=== PATIENT | female | born 1960 | race Caucasian/White ===

== ENCOUNTER → 2017-01-13 | Outpatient (CLI) | payer BC ==
--- NOTE | 2017-01-13 15:10 | XR ---
EXAMINATION TYPE: XR Hip Complete RT DATE OF EXAM: 01/13/2017 3:00 PM CLINICAL HISTORY: Right hip pain for 3 weeks. TECHNIQUE: AP and frogleg views of the right hip are obtained. COMPARISON: None. FINDINGS: There is no acute fracture/dislocation evident in the right hip. There is mild axial joint space loss. There is spurring at head neck junction in the proximal femur. The overlying soft tissue appears unremarkable. IMPRESSION: There is no acute fracture or dislocation in the right hip. Degenerative changes as note d above.
== END ==
LOC: RADXRMAIN 14:31
PROVIDERS: ATTEND Physician Assistant
DX: M16.11 Unilateral primary osteoarthritis, right hip (principal)
CPT/HCPCS: 73502

== ENCOUNTER → 2017-01-29 | Outpatient (CLI) | payer BC ==
--- NOTE | 2017-01-30 12:02 | MM ---
Reason for exam: screening (asymptomatic). Last mammogram was performed 3 years and 11 months ago. History: Patient is postmenopausal. Family history of premenopausal breast cancer in mother. Took estrogen for 6 months. Physical Findings: A clinical breast exam by your physician is recommended on an annual basis and results should be correlated with mammographic findings. MG Screening Mammo w CAD Bilateral CC and MLO view(s) were taken. Prior study comparison: February 16, 2013, CAD bilateral diagnostic mammogram. There are scattered fibroglandular densities. No significant changes when compared with prior studies. ASSESSMENT: Negative, BI-RAD 1 RECOMMENDATION: Routine screening mammogram of both breasts in 1 year.
== END | disposition home or self-care (01) ==
LOC: RADMAMWWP 13:59
PROVIDERS: ATTEND Family Medicine
DX: Z12.31 Encounter for screening mammogram for malignant neoplasm of breast (principal)

== ENCOUNTER → 2018-07-29 | Outpatient (CLI) | payer BC ==
--- NOTE | 2018-07-30 10:52 | ECHOF ---
Referral Reason:R00.2 chest pain, R10.12 Left Upper Quad abdompain MEASUREMENTS -------- HEIGHT: 170.2 cm WEIGHT: 84.8 kg BP: 105/61 RVIDd: 2.7 cm (< 3.3) IVSd: 1.0 cm (0.6 - 1.1) LVIDd: 4.5 cm (3.9 - 5.3) LVPWd: 1.0 cm (0.6 - 1.1) IVSs: 1.3 cm LVIDs: 2.9 cm LVPWs: 1.3 cm LAESV Index (A-L): 20.13 ml/m Ao Diam: 2.8 cm (2.0 - 3.7) AV Cusp: 1.9 cm (1.5 - 2.6) LA Diam: 3.3 cm (2.7 - 3.8) EPSS: 0.5 cm MV E Basil: 0.98 m/s MV DecT: 240 ms MV A Basil: 0.86 m/s MV E/A Ratio: 1.14 RAP: 5.00 mmHg RVSP: 36.46 mmHg MV EF SLOPE: 117.06 mm/s (70 - 150) MV EXCURSION: 1.93 cm (> 18.000) FINDINGS -------- Sinus rhythm. This was a technically good study. The left ventricular size is normal. Left ventricular wall thickness is normal. Overall left vent ricular systolic function is normal with, an EF between 55 - 60 %. The right ventricle is normal in size and function. Normal LA size by volume 22+/-6 ml/m2. The right atrium is normal in size. The aortic valve is trileaflet, and appears structurally normal. No aortic stenosis or regurgitation. Mild mitral annular calcification present. There is trace to mild mitral regurgitation. Trace tricuspid regurgitation present. Right ventricular systolic pressure is normal at < 35 mmHg. There is borderline pulmonary hypertension. Trace/mild (physiologic) pulmonic regurgitation. The aortic root size is normal. Normal inferior vena cava with normal inspiratory collapse consistent with estimated right atrial pre ssure of 5 mmHg. There is no pericardial effusion. CONCLUSIONS -------- 1. Sinus rhythm. 2. This was a technically good study. 3. The left ventricular size is normal. 4. Left ventricular wall thickness is normal. 5. Overall left ventricular systolic function is normal with, an EF between 55 - 60 %. 6. Normal LA size by volume 22+/-6 ml/m2. 7. The aortic valve is trileaflet, and appears structurally normal. No aortic stenosis or regurgitati on. 8. Mild mitral annular calcification present. 9. There is trace to mild mitral regurgitation. 10. Trace tricuspid regurgitation present. 11. Right ventricular systolic pressure is normal at < 35 mmHg. 12. There is borderline pulmonary hypertension. 13. Trace/mild (physiologic) pulmonic regurgitation. 14. The aortic root size is normal. 15. There is no pericardial effusion. FEATHEREDGER AND REDUCER MACHINE: Hever Finley RDCS
--- NOTE | 2018-07-30 18:06 | ECHOS ---
STRESS ECHOCARDIOGRAM DATE OF SERVICE: 07/29/2018 INDICATIONS: Chest pain MEDICATIONS: See list. BASELINE HEART RATE: 68 BASELINE BLOOD PRESSURE: 105/61 MAXIMUM HEART RATE: 145 MAXIMUM BLOOD PRESSURE: 175/86 85% MPHR: 137 100% MPHR: 164 METS: 11.7 MAXIMUM STAGE REACHED: 3 TOTAL EXERCISE TIME: 10 minutes CLINICAL INFORMATION: History of chest pain. RESULTS: Baseline heart rate 68 beats per minute. Baseline blood pressure 105/61 mmHg. Baseline 12-lead ECG shows normal sinus, normal cardiac intervals. Patient exercised on Héctor protocol for 10 minutes achieving a peak heart rate of 145 beats per minute. Normal blood pressure response to exercise. There was no ECG evidence for ischemia. However, at recovery, she started experiencing outflow tract PVCs with left bundle branch block morphology. Frequent PVCs were noted, subsided within 2 to 3 minutes into recovery. No sustained or nonsustained ventricular arrhythmias. The baseline 2D echo images showed normal LV size and systolic function without segmental wall motion abnormalities. At peak exercise, there was excellent augmentation of overall LV contractility without developing any wall motion abnormalities. At recovery, regional global LV systolic function remained normal. IMPRESSION: 1. Good exercise capacity. 2. No ECG evidence for ischemia. 3. No arrhythmias noted. 4. RVOT PVCs noted at recovery. MMODL / IJN: [id number] /
== END | disposition home or self-care (01) ==
LOC: RADNMMAIN 09:40
PROVIDERS: ATTEND Family Medicine
DX: I34.0 Nonrheumatic mitral (valve) insufficiency (principal); I37.1 Nonrheumatic pulmonary valve insufficiency; I27.20 Pulmonary hypertension, unspecified
CPT/HCPCS: 93306; 93351

== ENCOUNTER → 2018-07-30 | Outpatient (CLI) | payer BC ==
--- NOTE | 2018-07-30 09:18 | FL ---
EXAMINATION TYPE: FL UGI air w esophagus DATE OF EXAM: 07/30/2018 COMPARISON: NONE HISTORY: Left upper quadrant pain for 2 weeks TECHNIQUE: A double contrast UGI study is performed. 45 fluoroscopic images were taken, however imag es were unable to be saved. Images were reviewed at the technologist workstation. 2 minutes and 33 se conds of fluoroscopy time was utilized. FINDINGS: The esophagus shows normal motility and emptying into the stomach. A very small hiatal hernia is seen . No stricture is identified. The stomach shows normal distensibility and peristalsis with minimally thickened rugal folds in the g astric fundus and upper body. No evidence of any mass or ulcer disease. Moderate gastroesophageal re flux was seen during real time performance of this study to the level of the midthoracic esophagus wi thout Valsalva maneuver. The duodenal bulb, sweep, and proximal small bowel loops are unremarkable. IMPRESSION: 1. Moderate grade spontaneous gastroesophageal reflux to the level of mid thoracic esophagus without Valsalva maneuver. 2. Very small hiatal hernia. 3. Minimally thickened upper gastric rugal folds in the fundus and upper body most commonly related t o mild gastritis.
== END ==
LOC: RADFLMAIN 07:41
PROVIDERS: ATTEND Family Medicine
DX: K21.9 Gastro-esophageal reflux disease without esophagitis (principal); K44.9 Diaphragmatic hernia without obstruction or gangrene; K31.89 Other diseases of stomach and duodenum
CPT/HCPCS: 74246

== ENCOUNTER → 2018-09-21 | Outpatient (CLI) | payer BC ==
--- NOTE | 2018-09-21 16:57 | BD ---
EXAMINATION TYPE: Axial Bone Density DATE OF EXAM: 09/21/2018 COMPARISON: NONE CLINICAL HISTORY: Height: 5'5 1/2 Weight: 189 FRAX RISK QUESTIONS: History of Fracture in Adulthood: Y Secondary Osteoporosis: 3. Menopause before 45: Y RISK FACTORS HISTORY OF: Postmenopausal woman: y MEDICATIONS: Additional Medications: acid reflux, arthritis Additional History: EXAM MEASUREMENTS: Bone mineral densitometry was performed using the [employer] System. Bone mineral density as measured about the Lumbar spine is: ----- L1-L4(G/cm2): 1.131 T Score Values are as follows: ----- L2: -1.4 ----- L3: -0.2 ----- L4: 0.3 ----- L1-L4:-0.4 Bone mineral density about the R hip (g/cm2): 0.950 Bone mineral density about the L hip (g/cm2): 0.883 T Score values are as follows: -----R Neck: -0.6 -----L Neck: -1.1 -----R Total: -1.0 -----L Total: -0.4 IMPRESSION: Osteopenia (T Score between -2.5 and -1). There is slightly increased risk of fracture and the patient may be considered for treatment. Re-Screen 2-5 years. NOTE: T-SCORE=SD OF THE YOUNG ADULT MEAN.
--- NOTE | 2018-09-22 13:31 | MM ---
Reason for exam: screening (asymptomatic). Last mammogram was performed 1 year and 8 months ago. History: Patient is postmenopausal. Family history of premenopausal breast cancer in mother. Took estrogen for 6 months. Physical Findings: A clinical breast exam by your physician is recommended on an annual basis and results should be correlated with mammographic findings. MG 3D Screening Mammo W/Cad Bilateral CC and MLO view(s) were taken. Prior study comparison: January 29, 2017, bilateral MG screening mammo w CAD. February 16, 2013, CAD bilateral diagnostic mammogram. There are scattered fibroglandular densities. There is no discrete abnormality. ASSESSMENT: Negative, BI-RAD 1 RECOMMENDATION: Routine screening mammogram of both breasts in 1 year.
== END | disposition home or self-care (01) ==
LOC: RADMAMWWP 06:57
PROVIDERS: ATTEND Family Medicine
DX: Z12.31 Encounter for screening mammogram for malignant neoplasm of breast (principal); M85.88 Other specified disorders of bone density and structure, other site; Z78.0 Asymptomatic menopausal state
CPT/HCPCS: 77063; 77067; 77080

== ENCOUNTER → 2019-09-22 | Outpatient (CLI) | payer BC ==
--- NOTE | 2019-09-23 10:46 | MM ---
Reason for exam: screening (asymptomatic). Last mammogram was performed 1 year ago. History: Patient is postmenopausal. Family history of breast cancer in maternal aunt and premenopausal breast cancer in mother. Took estrogen for 6 months. Physical Findings: A clinical breast exam by your physician is recommended on an annual basis and results should be correlated with mammographic findings. MG 3D Screening Mammo W/Cad Bilateral CC and MLO view(s) were taken. Prior study comparison: September 21, 2018, bilateral MG 3d screening mammo w/cad. January 29, 2017, bilateral MG screening mammo w CAD. The breast tissue is heterogeneously dense. This may lower the sensitivity of mammography. No significant changes when compared with prior studies. ASSESSMENT: Negative, BI-RAD 1 RECOMMENDATION: Routine screening mammogram of both breasts in 1 year.
== END | disposition home or self-care (01) ==
LOC: RADMAMWWP 07:31
PROVIDERS: ATTEND Family Medicine
DX: Z12.31 Encounter for screening mammogram for malignant neoplasm of breast (principal)
CPT/HCPCS: 77063; 77067

== ENCOUNTER 2021-04-02 10:11 | Emergency (ER) | payer BC ==
[2021-04-02 10:33] VITALS: BP 117/74; PULSE 74; RESP 18; TEMP 98.6
--- NOTE | 2021-04-02 11:41 | XR ---
EXAMINATION TYPE: XR Hip Complete RT DATE OF EXAM: 04/02/2021 Comparison: 01/13/2017 Clinical History: 61-year-old female fall x 2 days/pain Findings: There is severe loss of cartilage and joint space especially along the superolateral weightbearing as pect of the right hip joint with subchondral sclerosis and marginal spurring. Findings have progresse d from 2017. Osteopenia. Some mild degenerative change at the right SI joint. No displaced fracture s een. Impression: Severe right hip OA, progressed from 2017. Osteopenia without displaced fracture.
--- NOTE | 2021-04-02 12:04 | ED ---
Lower Extremity Injury HPI - General Chief Complaint: Extremity Injury, Lower Stated Complaint: Fall/Hip Pain Time Seen by Provider: 04/02/21 10:35 Source: patient Mode of arrival: wheelchair Limitations: physical limitation - History of Present Illness Initial Comments: Patient is a 61-year-old female presenting to the emergency Department with complaints of right hip pain after she slipped a couple days ago. Patient states she slipped on some water and her left leg went out to the side and she ended up falling mostly on her right hip. She denies any previous injuries of her right hip or right knee. She is complaining of pain more in the anterior aspect of her hip as well as in her groin area. She has been walking with a cane secondary to the pain. She does not normally walk with a cane. She denies hitting her head or any other injuries from this fall. No further complaints. - Related Data Home Medications Medication Instructions Recorded Confirmed Celecoxib [CeleBREX] 200 mg PO DAILY 04/02/21 04/02/21 Cyclobenzaprine [Flexeril] 10 mg PO TID PRN 04/02/21 04/02/21 Pantoprazole Sodium [Protonix] 40 mg PO DAILY 04/02/21 04/02/21 Previous Rx's Medication Instructions Recorded Ibuprofen [Motrin] 600 mg PO Q8HR PRN #30 tab 04/02/21 Allergies Allergy/AdvReac Type Severity Reaction Status Date / Time codeine Allergy Itching Verified 04/02/21 11:24 Review of Systems ROS Statement: Those systems with pertinent positive or pertinent negative responses have been documented in the HPI. ROS Other: All systems not noted in ROS Statement are negative. Past Medical History Past Medical History: GERD/Reflux Additional Past Medical History / Comment(s): arthritis History of Any Multi-Drug Resistant Organisms: None Reported Past Surgical History: Appendectomy, Hysterectomy Past Psychological History: No Psychological Hx Reported Smoking Status: Never smoker Past Alcohol Use History: Occasional Past Drug Use History: Marijuana General Exam - General Exam Comments Initial Comments: GENERAL: Patient is well-developed and well-nourished. Patient is nontoxic and in no acute distress. HEAD: Atraumatic, normocephalic. EYES: Pupils equal round and reactive to light, extraocular movements intact, sclera anicteric, conjunctiva are normal. Eyelids were unremarkable. ENT: Nares patent, oropharynx clear without exudates. Moist mucous membranes. NECK: Normal range of motion, supple without lymphadenopathy or JVD. LUNGS: Unlabored respirations. Breath sounds clear to auscultation bilaterally and equal. No wheezes rales or rhonchi. HEART: Regular rate and rhythm without murmurs, rubs or gallops. ABDOMEN: Soft, nontender, normoactive bowel sounds. No guarding, no rebound. No masses appreciated. : Deferred MUSCULOSKELETAL: Patient has some mild pain to palpation of the right anterior hip, increased pain with hip flexion and extension, painful gait. Neurovascular intact. No pitting edema. No clubbing or cyanosis. NEUROLOGICAL: Patient is alert and oriented x 3. Motor and sensory are also intact. Cranial nerves II through XII grossly intact. Symmetrical smile. Normal speech, normal gait. PSYCH: Normal mood, normal affect. SKIN: Warm, Dry, normal turgor, no rashes or lesions noted. Limitations: physical limitation Course Vital Signs 04/02/21 10:31 Temperature 98.6 F Pulse Rate 74 Respiratory 18 Rate Blood Pressure 117/74 O2 Sat by Pulse 95 Oximetry Medical Decision Making - Medical Decision Making Patient is a 61-year-old female here for right hip pain after she slipped and fell couple days ago. No other injuries except for the right hip pain. X-rays reveal severe osteoarthritis of the right hip but no acute fractures. I discussed these findings with the patient. I recommended following up with orthopedic doctor if symptoms persist. Also recommended Tylenol or ibuprofen f or discomfort. She can continue walking with a cane for support. Patient is in agreement with this plan of care and she is stable for discharge. Disposition Clinical Impression: Right hip pain Disposition: HOME SELF-CARE Condition: Stable Instructions (If sedation given, give patient instructions): Hip Pain (ED) Additional Instructions: Please return to the Emergency Department if symptoms worsen or any other concerns. Recommend use of cane to help with gait. Recommend Tylenol or ibuprofen for discomfort. Follow up with orthopedics if symptoms persist. Prescriptions: Ibuprofen [Motrin] 600 mg PO Q8HR PRN #30 tab PRN Reason: Pain Is patient prescribed a controlled substance at d/c from ED?: No Referrals: Markel Reyes MD [Primary Care Provider] - 1-2 days Pipe Bro DO [Doctor of Osteopathic Medicine] - 1-2 days Time of Disposition: 12:04
== END 2021-04-02 12:11 | disposition home or self-care (01) ==
LOC: EC 10:11
DX: M25.551 Pain in right hip (principal); K21.9 Gastro-esophageal reflux disease without esophagitis; F12.90 Cannabis use, unspecified, uncomplicated
CPT/HCPCS: 73502; 99283

== ENCOUNTER → 2021-07-03 | Outpatient (CLI) | payer BC ==
--- NOTE | 2021-07-03 12:05 | MM ---
Reason for exam: screening (asymptomatic). Last mammogram was performed 1 year and 9 months ago. History: Patient is postmenopausal. Family history of breast cancer in maternal aunt and premenopausal breast cancer in mother. Took estrogen for 6 months. Physical Findings: A clinical breast exam by your physician is recommended on an annual basis and results should be correlated with mammographic findings. MG 3D Screening Mammo W/Cad Bilateral CC and MLO view(s) were taken. Prior study comparison: September 22, 2019, bilateral MG 3d screening mammo w/cad. September 21, 2018, bilateral MG 3d screening mammo w/cad. January 29, 2017, bilateral MG screening mammo w CAD. There are scattered fibroglandular densities. There are benign appearing round calcifications bilaterally. There is no discrete abnormality. ASSESSMENT: Benign, BI-RAD 2 RECOMMENDATION: Routine screening mammogram of both breasts in 1 year.
--- NOTE | 2021-07-03 15:31 | BD ---
EXAMINATION TYPE: Axial Bone Density DATE OF EXAM: 07/03/2021 COMPARISON: NONE CLINICAL HISTORY: Height: 5 FT 5 1/2 IN Weight: 176 FRAX RISK QUESTIONS: Alcohol (3 or more units per day): NO Family History (Parent hip fracture): NO Glucocorticoids (More than 3mos): NO (Ex: prednisone, prednisolone, methylprednisolone, dexamethasone, and hydrocortisone). History of Fracture in Adulthood: YES Secondary Osteoporosis: 1. Type 1 Diabetes: NO 2. Hyperthyroidism: NO 3. Menopause before 45: YES 4. Malnutrition: NO 5. Chronic liver disease: NO Rheumatoid Arthritis: NO Current Tobacco Use: NO RISK FACTORS HISTORY OF: Surgery to Spine/Hip(right/left)/Wrist (right/left): NO Family History of Osteoporosis: NO Active: YES Diet low in dairy products/other sources of calcium: NO Postmenopausal woman: TOTAL HYST AGE 42 Take estrogen and/or progesterone medications: NONE Lost more than 2 inches in height since high school: NO MEDICATIONS: Additional Medications: TYLENOL, ACID REFLUX, FLEXERAL Additional History: EXAM MEASUREMENTS: Bone mineral densitometry was performed using the [employer] System. Bone mineral density as measured about the Lumbar spine is: ----- L1-L4(G/cm2): 1.256 T Score Values are as follows: ----- L2: -0.3 ----- L3: 0.2 ----- L4: 2.0 ----- L1-L4: 0.6 Bone mineral density has: INCREASED 11.5 % since study of: 2018 Bone mineral density about the R hip (g/cm2): 0.939 Bone mineral density about the L hip (g/cm2): 0.924 T Score values are as follows: -----R Neck: -0.7 -----L Neck: -0.8 -----R Total: -1.1 -----L Total: -0.6 Bone mineral density has: DECREASED -2.0 % since study of: 2018 IMPRESSION: Osteopenia (T Score between -2.5 and -1). There is slightly increased risk of fracture and the patient may be considered for treatment. Re-Screen 2-5 years. NOTE: T-SCORE=SD OF THE YOUNG ADULT MEAN.
== END | disposition home or self-care (01) ==
LOC: RADMAMWWP 07:05
PROVIDERS: ATTEND Family Medicine
DX: Z12.31 Encounter for screening mammogram for malignant neoplasm of breast (principal); Z13.820 Encounter for screening for osteoporosis; M85.89 Other specified disorders of bone density and structure, multiple sites; Z78.0 Asymptomatic menopausal state; Z80.3 Family history of malignant neoplasm of breast
CPT/HCPCS: 77063; 77067; 77080

== ENCOUNTER → 2022-01-02 | Outpatient (CLI) | payer BC ==
--- NOTE | 2022-01-02 17:19 | XR ---
EXAMINATION TYPE: XR lumbar spine 2 or 3V DATE OF EXAM: 01/02/2022 COMPARISON: None available INDICATION: Intermittent left-sided sciatic pain for one year. TECHNIQUE: Standard 3 views of the lumbar spine. FINDINGS: Mild scoliosis of the lumbar spine. Preserved lumbar lordosis. No significant anterolisthesis or retr olisthesis. No definite vertebral body collapse or acute displaced fracture. Degenerative changes of the lumbar spine with multilevel opposing endplate osteophytosis. Degenerated L4-5 and L5-S1 discs and to a lesser extent L3-4 and L1-2 discs. Suspected bilateral L4-5 and L5-S1 facet osteoarthropathy. Arterial atherosclerotic calcifications. 7 mm soft tissue calcification versus calculus is seen in th e mid abdomen in the lateral view. Degenerative changes of the inferior aspect of the left sacroiliac joint. IMPRESSION: Degenerative changes of the lumbar spine as described above. Further MRI assessment can be considered if clinically required.
== END | disposition home or self-care (01) ==
LOC: RADXRMAIN 16:42
PROVIDERS: ATTEND Family Medicine
DX: M47.816 Spondylosis without myelopathy or radiculopathy, lumbar region (principal)
CPT/HCPCS: 72100

== ENCOUNTER → 2022-01-30 | Outpatient (CLI) | payer BC ==
--- NOTE | 2022-01-30 07:46 | US ---
EXAMINATION TYPE: US duplex aorta DATE OF EXAM: 01/30/2022 COMPARISON: NONE CLINICAL HISTORY: M51.36. EXAM MEASUREMENTS: Abdominal Aorta: Proximal: 2.0 x 2.0cm, mostly obscured by overlying midline bowel gas Mid: 1.9 x 2.0cm Distal: 1.6 x 1.7cm Right Iliac: 1.0 x 1.0cm Left Iliac: 0.9 x 0.9cm IMPRESSION: No evidence for abdominal aortic aneurysm at this time.
--- NOTE | 2022-01-30 10:07 | MR ---
EXAMINATION TYPE: MR lumbar spine wo/w con DATE OF EXAM: 01/30/2022 8:10 AM COMPARISON: NONE HISTORY: Back pain, lumbar degeneration CONTRAST: The patient was injected with 8 mL intravenous Gadavist gadolinium contrast. Multiplanar, MultiSpin echo imaging of the lumbar spine was performed. L1-L2: Moderate disc desiccation noted with mild subligamentous disc herniation seen. Mild effacement ventral thecal sac. No evidence for central stenosis or lateral recess stenosis. Mild bilateral fora jermaine encroachment. L2-L3: Mild to moderate disc desiccation. Broad-based posterior disc bulge with mild effacement ventr al thecal sac. No evidence of herniation protrusion or central stenosis. Facet joint arthropathy with out evidence for foraminal encroachment. L3-L4: Moderate disc desiccation. Moderate broad-based posterior disc bulge with the far lateral into the right disc herniation. There is resultant bilateral lateral recess stenosis and right greater th an left foraminal encroachment borderline central stenosis. L4-L5: Severe disc desiccation . Posterior disc bulge. No herniation or protrusion. No evidence for c entral stenosis. No foraminal encroachment L5-S1: Severe disc desiccation posterior disc bulge. No herniation protrusion or central stenosis. Fa cet joint arthropathy with mild bilateral foraminal encroachment. Lumbar segments are intact. No paraspinal masses are identified. Conus medullaris has a normal appe arance. No pathologic enhancement identified. IMPRESSION: 1. Multilevel degenerative disc disease 2. Moderate broad-based posterior disc bulge with far lateral and to the right disc herniation at L3- 4 with bilateral lateral recess stenosis and borderline central stenosis. Bilateral foraminal encroac hment.
== END | disposition home or self-care (01) ==
LOC: RADUSWWP 06:41
PROVIDERS: ATTEND Family Medicine
DX: M48.061 Spinal stenosis, lumbar region without neurogenic claudication (principal); M51.36 Other intervertebral disc degeneration, lumbar region
CPT/HCPCS: 93979; 72158; A9585

== ENCOUNTER → 2022-04-18 | Outpatient (CLI) | payer BC ==
[2022-04-18 08:16] VITALS: BP 147/88; PULSE 71; RESP 16; TEMP 98.2
--- NOTE | 2022-04-18 08:20 | P.PAINPG ---
PQRS Measure Charge Sheet Comment: HISTORY OF PRESENT ILLNESS: 62 yr old female as a referral from Dr. Xiao presents today with severe and chronic LBP x 1 yr secondary to DDD, DH, neuroforaminal stenoses and facet arthropathy for evaluation. Pt states her pain level is 5/10 in intensity, sharp in character, intermittent as it escalates as high as 9/10 and unable to walk due to pain. Pain radiates across the hips and down the LEs. Pain is provoked with activity. Pain is relieved with PT since 2019 but was ineffective, heat, ice, medications (Mobic, Flexeril), topicals which provide no relief, laying supine and rest. PMH: OA, GERD PSH: Hysterectomy, Appendectomy SH: Former tobacco user, No ETOH abuse, No illicit drug use. FH: Non contributory All: Codeine Meds: See list REVIEW OF ORGAN SYSTEMS: CONSTITUTIONAL: No fevers or chills. No recent weight loss. NEUROLOGICAL: + numbness and tingling along the distal extremities. No seizure disorders or headaches. MUSCULOSKELETAL: + pain PSYCHIATRIC: Denies current depression or suicidal thought s. Physical Examinations : Constitutional : Cooperative , not in acute distress . Neurologic : Cranial nerve II to XII intact. No focal neurological deficits. Psychiatric : alert & oriented x 3. Matching mood & appropriate affect. Judgment & insight intact. Musculoskeletal : Cervical Spine Motor strength in the deltoid and biceps: Normal right side. Normal Left side Motor strength biceps and the wrist extensors: Normal right side . Normal left side Motor strength in the triceps muscle: Normal right side. Normal left side Deep tendon reflexes: Normal at the biceps. Normal at Brachioradialis. Normal at triceps Vertebral body tenderness to deep palpation over Cervical facet loading test: positive bilaterally Spurling test: positive bilaterally Neck distraction test: positive bilaterally Tavares sign: positive bilaterally Lumbar spine Motor strength lower extremities ,thigh and legs 5/5 Right side , 5/5 Left side Deep tendon reflexes : Normal Knee Jerk. Normal Ankle Jerk Vertebral body tenderness over L3, L4 Lumbar facet Loading Test: positive Right / positive Left Range of motion of the lumbar spine Flexion 30 degrees, extension 10 degrees Straight Leg Raise test: Left/ Right positive at degree Ho test: positive right / positive left. Severe tenderness over the Sacroiliac joint on the Right / Left sides Gaenslen test: positive bilaterally Seated flexion test: positive bilaterally. Sacral spine : Severe tenderness over the Sacroiliac joint: right side / left side Range of motion: Flexion of the lumbar spine <60 degrees Range of motion: Extension of the lumbar spine <20 degrees Gaenslen's Test positive Gus's Test positive Ho test: positive right side / left side Thigh Thrust Test Sacral Thrust Test Imaging: MRI without contrast of the lumbar spine from 01/30/22 reviewed. Assessment/ Plan : Lumbar DH, Lumbar DDD Recommendation of LESI L3-L4. May need a series of injections, up to 3 within a 6 mo period, for optimal pain relief. Risks, benefits of procedure discussed and patient verbalized understanding. Denies aspirin or anti- coagulant use or medical history of diabetes. Protocol for discontinuation/ continuation of medications lindsay procedure discussed. All questions answered. I have spent greater than 30 minutes on patient care today. Dr Arndt was available by phone for the evaluation of this patient. The time was used to review the medical records including relevant urine studies and Prescription history (MAPs), review of the available imaging, evaluation and examination of the patient, coordination of care with the medical staff and if applicable referring physicians, as well as creation of the medical record PQRS Narrative: Smoking Status Former smoker Home Medications: Ambulatory Orders Celecoxib [CeleBREX] 200 mg PO DAILY 04/02/21 Cyclobenzaprine [Flexeril] 10 mg PO TID PRN 04/02/21 Ibuprofen [Motrin] 600 mg PO Q8HR PRN #30 tab 04/02/21 Pantoprazole Sodium [Protonix] 40 mg PO DAILY 04/02/21 Controlled Substance Measures - Controlled Substance Measures Is patient prescribed a controlled substance at discharge?: No
== END ==
LOC: PNWHC3 07:42
PROVIDERS: ATTEND Specialist
DX: M51.36 Other intervertebral disc degeneration, lumbar region (principal); M48.061 Spinal stenosis, lumbar region without neurogenic claudication; M51.26 Other intervertebral disc displacement, lumbar region; Z87.891 Personal history of nicotine dependence; M19.90 Unspecified osteoarthritis, unspecified site; Z88.5 Allergy status to narcotic agent
CPT/HCPCS: 99211

== ENCOUNTER → 2022-06-13 | Outpatient (CLI) | payer BC ==
[2022-06-13 07:52] VITALS: BP 157/88; PULSE 70; RESP 18; TEMP 98.4
--- NOTE | 2022-06-13 14:08 | P.PAINPG ---
PQRS Measure Charge Sheet Comment: A 62 yr old female with a history of severe and chronic low back pain secondary to lumbar degenerative disc diseases and lumbar spondylosis with facet arthropathy without myelopathy presents today for evaluation s/p MYLES L3-L4. Pt states she experienced 50% pain relief x 2 wks s/p procedure. Pain level is c urrently at 3/10 in intensity, constant, localized in mid lumbar spine, dull/ achy in character w shooting towards the thighs. Pain is provoked by bending & lifting as high as 6/10 in intensity. Pain is alleviated with heat, medications (Mobic), home exercises, yoga, repositioning and rest. Interventional pain procedures completed include MYLES L3-4 x1 Patient is currently on Mobic Patient denies any side effects of the medication(s), denies excessive drowsiness or sleepiness, denies suicidal ideation and reports that the current pain medication is helping to control the pain and improve activities of daily living. Patient denies any motor or sensory deficits. Patient denies any fever or night sweats, denies any change in the bowel movements or urination. Physical Examination: -Constitutional: Cooperative. Not in acute distress . - Neurologic: Cranial nerve II to XII intact. No focal neurological deficits. - Psychatric: Alert & oriented x 3. Matching mood & appropriate affect. Judgme nt and insight intact. - Musculoskeletal: Cervical spine: Muscle bulk/ tone/ strength in the bilateral upper extremities normal Vertebral body tenderness to palpation over Spurling test positive Distraction test positive Facet loading test positive Thoracic spine Muscle bulk / tone/ strength in the bilateral paraspinal muscles normal Vertebral body tender to palpation over Facet loading test positive Lumbar spine: Motor bulk/ tone/ strength lower extremities , thigh and legs : 5/5 Deep tendon reflexes : Normal Knee Jerk. Normal Ankle Jerk . Vertebral body tenderness to palpation over L4 Lumbar Facet Loading Test positive Straight Leg Raise: positive at 30 degrees right side/ left side Gaenslen's Test positive Sacral spine : Severe tenderness over the Sacroiliac joint: right side / left side Range of motion: Flexion of the lumbar spine <60 degrees Range of motion: Extension of the lumbar spine <20 degrees Gaenslen's Test positive Gus's Test positive Ho test: positive right side / left side Thigh Thrust Test Sacral Thrust Test Assessment and plan: Chronic low back pain secondary to lumbar degenerative disc disease , lumbar spondylosis with facet arthropathy without myelopathy Recommendation of MYLES L3-4 #2. May need a series of injections, up to 3 within a 6 mo period, for optimal pain relief. Risks, benefits of procedure discussed and pt verbalized understanding. Denies anticoagulant use or medical history of diabetes. . All patient questions answered MAPS reviewed and it was appropriate. I have spent less than 30 minutes on patient care today. Dr Arndt was available by phone for the evaluation of this patient. The time was used to review the medical records including relevant urine studies and Prescription history (MAPs), review of the available imaging, evaluation and examination of the patient, coordination of care with the medical staff and if applicable referring physicians, as well as creation of the medical record - Pain Location Lower Back Non-Pharmacological Interventions: Heat, Home Exercise, Relaxation Technique, Stretching Pharmacological Interventions: Epidural PQRS Narrative: Smoking Status Former smoker Hx Alcohol Use (MH) Yes: occasional Home Medications: Ambulatory Orders Cyclobenzaprine [Flexeril] 10 mg PO TID PRN 04/02/21 Ibuprofen [Motrin] 600 mg PO Q8HR PRN #30 tab 04/02/21 Pantoprazole Sodium [Protonix] 40 mg PO DAILY 04/02/21 Meloxicam [Mobic] 1 tab PO DAILY 04/18/22 Controlled Substance Measures - Controlled Substance Measures Is patient prescribed a controlled substance at discharge?: No
== END ==
LOC: PNWHC3 07:23
PROVIDERS: ATTEND Specialist
DX: M51.36 Other intervertebral disc degeneration, lumbar region (principal); M47.816 Spondylosis without myelopathy or radiculopathy, lumbar region; G89.29 Other chronic pain; Z87.891 Personal history of nicotine dependence; Z88.5 Allergy status to narcotic agent
CPT/HCPCS: 99211

== ENCOUNTER 2022-07-18 06:47 | Day surgery (SDC) | payer BC ==
[2022-07-16 16:18] VITALS: BMI 28.2
[~2022-07-18 06:47] MED LIST: LACTATED RINGERS 1,000 ML IV SCH; LIDOCAINE 1% (10MG/ML) FOR IV START INTRADERMA PRN
[2022-07-18 07:13] VITALS: TEMP 97.6
[2022-07-18] MEDS ORDERED: MIDAZOLAM 2 MG/2 ML VIAL ONE (07:47)
[2022-07-18] MEDS ORDERED: IOPAMIDOL M200 10 ML VIAL ONE (07:47)
[2022-07-18] MEDS ORDERED: methylPREDNISolone ACETATE 80 MG/ML 1 ML VIAL ONE (07:47)
[2022-07-18] MEDS ORDERED: fentaNYL (PF) 50 MCG/ML 2 ML AMP ONE (07:47)
--- NOTE | 2022-07-18 08:00 | P.PCN ---
Date of Procedure: 07/18/22 Procedure(s) Performed: PREOPERATIVE DIAGNOSIS: 1- Lumbar Degenerative Disc Diseases 2-Lumbar spondylosis with Facet arthropathy without myelopathy POSTOPERATIVE DIAGNOSIS: Same as preop diagnosis. PROCEDURE 1. Lumbar epidural steroid injection under fluoroscopic guidance at the L3-4 level. (Fluoroscopy imaging was available in radiology department) 2. Lumbar epidurogram. ANESTHESIA: moderate sedation with intravenous Versed 2 mg ,and fentanyle 100 Mcg Sedation start time : 07:49 Sedation end time : 07:59 EBL: Minimal PROCEDURE INDICATION: The patient with low back pain and radiculitis symptoms unresponsive to conservative treatment. Fluoroscopy was used to optimize visualization of the needle placement and to maximize safety. PROCEDURE DESCRIPTION / TECHNIQUE: The patient was seen and identified in the preoperative area. Risks, benefits, complications including but not limited to infections ,bleeding ,allergic reaction to the medications ,nerve damage and not complete pain releife , and alternatives were discussed with the patient. The patient agreed to proceed with the procedure and signed the consent. IV was started, and vital signs were stable. Patient was taken to the OR and time out was completed. The patient was placed in the prone position on procedure table and a pillow was placed under the abdomen to reduce lumbar lordosis. The lumbosacral area was prepped and draped in the usual sterile fashion.ere closely monitored during the procedure. Conscious sedation was used during the procedure to decrease patients anxiety. Vital signs was monitered during the entire procedure. Using anterior-posterior fluoroscopy, the L3-4 interlaminar space was identified and the skin over this site was marked and then infiltrated with 1% lidocaine subcutaneously. Subsequently, a 20-gauge Tuohy epidural needle was inserted and advanced toward the epidural space using the ``Loss of resistance technique and guided by AP and lateral fluoroscopy. The correct needle position in the epidura l space was verified with the injection of 2 mL of the water soluble contrast dye Isovue 200 contrast and observing an excellent epidurogram with the epidural spread of the dye, after negative aspiration for blood and CSF and in the absence of paresthesias. Again after negative aspiration, a 6 ml mixture containing 80 mg of Depo-medrol , and 2 ml of preservative free Normal Saline, and 2 ml of preservative free lidocaine 1% solution was injected and a washout of epidurogram was seen. Needle was withdrawn intact, skin was cleansed, and bandages were applied. COMPLICATIONS: None DISPOSITION / PLANS: The patient was placed in a supine position and transferred to the recovery area in a stable condition for observation. There was no evidence of lower extremity motor or sensory deficit after the procedure. Patient was discharged from the recovery room after meeting discharge criteria. Home discharge instructions were given to the patient by the staff. The patient was reexamined prior to discharge. The patient will schedule a follow up in the clinic in 2-4 weeks
[2022-07-18] MEDS ORDERED: IV FLUID CONTINUATION 800 ML IV ONE (08:04)
[2022-07-18 08:20] VITALS: BP 117/77; PULSE 62; RESP 20
--- NOTE | 2022-07-18 08:35 | FL ---
EXAMINATION TYPE: FL guided pain mgmt statistic DATE OF EXAM: 07/18/2022 CLINICAL HISTORY: Low back pain. TECHNIQUE: Fluoroscopy. COMPARISON: None. FINDINGS: Fluoroscopic guidance was provided during pain relief procedure performed by Dr. Arndt . A total of 1 second of fluoroscopic time was utilized during the procedure and 1 spot images are a cquired. Single image acquired shows needle localization at L4 level. IMPRESSION: As Above.
== END 2022-07-18 08:33 | disposition home or self-care (01) ==
LOC: ORPAIN 06:47
PROVIDERS: ATTEND Specialist
DX: M51.16 Intervertebral disc disorders with radiculopathy, lumbar region (principal); M47.26 Other spondylosis with radiculopathy, lumbar region; Z88.5 Allergy status to narcotic agent
CPT/HCPCS: 99152; 62323; J2250; J1040; J3010; Q9966

== ENCOUNTER → 2022-08-01 | Outpatient (CLI) | payer BC ==
--- NOTE | 2022-08-02 08:06 | MM ---
Reason for Exam: Screening (asymptomatic). Last mammogram was performed 1 year(s) and 1 month(s) ago. Patient History: Menarche at age 17. First Full-Term at age 25. Left ovary removed at age 42. Right ovary removed at age 42. Hysterectomy at age 42. Postmenopausal. Estrogen for 6 months until age 43. Maternal aunt had breast cancer. Mother had breast cancer. Risk Values: Lynn 5 year model risk: 2.5%. NCI Lifetime model risk: 12.4%. Prior Study Comparison: 09/21/2018 Bilateral Screening Mammogram, [facility]. 09/22/2019 Bilateral Screening Mammogram, [facility]. 07/03/2021 Bilateral Screening Mammogram, [facility]. Tissue Density: The breast tissue is almost entirely fat. Findings: Analyzed By CAD. There is no suspicious group of microcalcifications or new suspicious mass in either breast. Overall Assessment: Negative, BI-RAD 1 Management: Screening Mammogram of both breasts in 1 year. A clinical breast exam by your physician is recommended on an annual basis and results should be correlated with mammographic findings. [facility] will attempt to contact patient to return for supplemental views and ultrasound if indicated. Electronically signed and approved by: Junior Corona DO
== END | disposition home or self-care (01) ==
LOC: RADMAMWWP 07:00
PROVIDERS: ATTEND Family Medicine
DX: Z12.31 Encounter for screening mammogram for malignant neoplasm of breast (principal); Z80.3 Family history of malignant neoplasm of breast; Z78.0 Asymptomatic menopausal state
CPT/HCPCS: 77063; 77067

== ENCOUNTER → 2022-08-05 | Outpatient (CLI) | payer BC ==
[2022-08-05 08:05] VITALS: BP 129/82; PULSE 69; RESP 18; TEMP 98.7
--- NOTE | 2022-08-05 08:09 | P.PAINPG ---
PQRS Measure Charge Sheet Comment: A 62 yr old female with a history of severe and chronic low back pain x 1 yr secondary to lumbar degenerative disc diseases and lumbar spondylosis with facet arthropathy without myelopathy presents today for evaluation s/p MYLES L3-L4. Pt states she experienced 10% pain relief x 2 wks s/p procedure. Pain level is currently at 5/10 in intensity, constant, localized in mid lumbar spine, dull/ achy in character w shooting towards the BL thighs. Pain is provoked by walking for periods of 20 min or more, bending/ lifting. Pain is alleviated with heat, ice, hot showers, topicals, repositioning and rest. Interventional pain procedures completed include MYLES L3, 4, L4-5. Patient is currently on Diclofenac gel Patient denies any side effects of the medication(s), denies excessive drowsiness or sleepiness, denies suicidal ideation and reports that the current pain medication is helping to control the pain and improve activities of daily living. Patient denies any motor or sensory deficits. Patient denies any fever or night sweats, denies any change in the bowel movements or urination. Physical Examination: -Constitutional: Cooperative. Not in acute distress . - Neurologic: Cranial nerve II to XII intact. No focal neurological deficits. - Psychatric: Alert & oriented x 3. Matching mood & appropriate affect. Judgment and insight intact. - Musculoskeletal: Cervical spine: Muscle bulk/ tone/ strength in the bilateral upper extremities normal Vertebral body tenderness to palpation over Spurling test positive Distraction test positive Facet loading test positive Thoracic spine Muscle bulk / tone/ strength in the bilateral paraspinal muscles normal Vertebral body tender to palpation over Facet loading test positive Lumbar spine: Motor bulk/ tone/ strength lower extremities , thigh and legs : 5/5 Deep tendon reflexes : Normal Knee Jerk. Normal Ankle Jerk . Vertebral body tenderness to palpation over Lumbar Facet Loading Test positive Straight Leg Raise: positive at 30 degrees right side/ left side Gaenslen's Test positive Sacral spine : Severe tenderness over the Sacroiliac joint: right side / left side Range of motion: Flexion of the lumbar spine <60 degrees Range of motion: Extension of the lumbar spine <20 degrees Gaenslen's Test positive Gus's Test positive Ho test: positive right side / left side Thigh Thrust Test Sacral Thrust Test Assessment and plan: Chronic low back pain secondary to lumbar degenerative disc disease , lumbar spondylosis with facet arthropathy without myelopathy Pt stated she is looking forward to her upcoming R hip surgery and PT. She will follow up w this clinic on an as needed basis. Risks, benefits of procedure discussed and pt verbalized understanding. Denies anticoagulant use or medical history of diabetes. All patient questions answered I have spent less than 30 minutes on patient care today. Dr Arndt was available by phone for the evaluation of this patient. The time was used to review the medical records including relevant urine studies and Prescription history (MAPs), review of the available imaging, evaluation and examination of the patient, coordination of care with the medical staff and if applicable referring physicians, as well as creation of the medical record PQRS Narrative: Smoking Status Former smoker Hx Alcohol Use (MH) Yes: occasional Home Medications: Ambulatory Orders Atorvastatin Calcium 20 mg PO DAILY 07/16/22 Diclofenac (Unknown Dose) 1 tab PO BID 07/16/22 Controlled Substance Measures - Controlled Substance Measures Is patient prescribed a controlled substance at discharge?: No
== END ==
LOC: PNWHC3 07:17
PROVIDERS: ATTEND Specialist
DX: M47.816 Spondylosis without myelopathy or radiculopathy, lumbar region (principal); M51.36 Other intervertebral disc degeneration, lumbar region; G89.29 Other chronic pain; Z88.5 Allergy status to narcotic agent; Z87.891 Personal history of nicotine dependence
CPT/HCPCS: 99211

== ENCOUNTER → 2023-08-04 | Outpatient (CLI) | payer BC ==
--- NOTE | 2023-08-04 10:17 | MM ---
Reason for Exam: Screening (asymptomatic). Last screening mammogram was performed 12 month(s) ago. Patient History: Menarche at age 17. First Full-Term at age 25. Left ovary removed at age 42. Right ovary removed at age 42. Hysterectomy at age 42. Postmenopausal. Patient has history of breast feeding. Estrogen for 6 months until age 43. Maternal aunt had breast cancer. Mother had breast cancer. Risk Values: Lynn 5 year model risk: 2.6%. NCI Lifetime model risk: 12.1%. Prior Study Comparison: 01/29/2017 Bilateral Screening Mammogram, [facility]. 09/21/2018 Bilateral Screening Mammogram, [facility]. 09/22/2019 Bilateral Screening Mammogram, [facility]. 07/03/2021 Bilateral Screening Mammogram, [facility]. 08/01/2022 Bilateral MG 3D screening mammo w/cad, [facility]. Tissue Density: There are scattered fibroglandular densities. Findings: Analyzed By CAD. There is no suspicious group of microcalcifications or new suspicious mass. Overall Assessment: Negative, BI-RAD 1 Management: Screening Mammogram of both breasts in [address] [facility] will attempt to contact patient to return for supplemental views and ultrasound if indicated. Patient should continue monthly self-breast exams. A clinical breast exam by your physician is recommended on an annual basis. This exam should not preclude additional follow-up of suspicious palpable abnormalities. Note on Lynn scores and lifetime risk: 1. A Lynn score greater than 3% is considered moderate risk. If this is the case, consider specialist referral to assess eligibility for a risk reducing agent. 2. If overall lifetime risk for the development of breast cancer is 20% or higher, the patient may qualify for future screening with alternating mammogram and breast MRI. Electronically signed and approved by: Junior Corona DO
== END | disposition home or self-care (01) ==
LOC: RADMAMWWP 07:14
PROVIDERS: ATTEND Family Medicine
DX: Z12.31 Encounter for screening mammogram for malignant neoplasm of breast (principal); Z78.0 Asymptomatic menopausal state; Z80.3 Family history of malignant neoplasm of breast
CPT/HCPCS: 77063; 77067

== ENCOUNTER → 2024-04-07 | Outpatient (CLI) | payer BC ==
--- NOTE | 2024-04-07 09:13 | BD ---
EXAMINATION TYPE: Axial Bone Density DATE OF EXAM: 04/07/2024 CLINICAL HISTORY: 64 years old Female. ICD-10 CODE: Z78.0 ASYMPTOMATIC MENOPAUSAL STATE Height: 5 ft 4 in Weight: 174 FRAX RISK QUESTIONS: Alcohol (3 or more units per day): no Family History (Parent hip fracture): no Glucocorticoids (More than 3mos): no (Ex: prednisone, prednisolone, methylprednisolone, dexamethasone, and hydrocortisone). History of Fracture in Adulthood: yes Secondary Osteoporosis: 1. Type 1 Diabetes: no 2. Hyperthyroidism: no 3. Menopause before 45: yes 4. Malnutrition: no 5. Chronic liver disease: no Rheumatoid Arthritis: no Current Tobacco Use: no RISK FACTORS HISTORY OF: Surgery to Spine/Hip(right/left)/Wrist (right/left): apryl hip replacement When: MEDICATIONS: Thyroid Medications: none Osteoporosis Medications: none EXAM MEASUREMENTS: Bone mineral densitometry was performed using the [employer]. Bone mineral density as measured about the Lumbar spine is: ----- L1-L4(G/cm2): 1.485 T Score Values are as follows: ----- L1: 1.2 ----- L2: 1.4 ----- L3: 3.0 ----- L4: 4.3 ----- L1-L4: 2.5 Z Score Values are as follows: ----- L1: 2.1 ----- L2: 2.3 ----- L3: 3.9 ----- L4: 5.2 ----- L1-L4: 3.4 Bone mineral density has: increased 18.2 % since study of: 2020 Bone mineral density about the L Wrist (g/cm2): 0.626 T Score values are as follows: -----Dist. R+U: -1.6 -----Prox. R+U: 0.1 -----Radius total: -0.8 Z Score values are as follows: -----Dist. R+U: -0.5 -----Prox. R+U: 1.2 -----Radius total: 0.3 first time wrist was done no frax IMPRESSION: Normal (Values between +1 and -1 indicate normal bone mass). Consider repeating this study in 5 year s or sooner if there is some new clinical indication. NOTE: T-SCORE=SD OF THE YOUNG ADULT MEAN.
== END | disposition home or self-care (01) ==
LOC: RADBDWWP 07:03
PROVIDERS: ATTEND Family Medicine
DX: M85.88 Other specified disorders of bone density and structure, other site (principal); Z78.0 Asymptomatic menopausal state
CPT/HCPCS: 77080

== ENCOUNTER 2024-04-24 05:28 | Emergency (ER) | payer BC ==
[2024-04-24 05:36] VITALS: RESP 18
[2024-04-24] MEDS: KETOROLAC 15 MG/ML 1 ML VIAL IM STA (06:30)
[2024-04-24] MEDS: ORPHENADRINE 30 MG/ML 2 ML VIAL IM STA (06:31)
--- NOTE | 2024-04-24 06:52 | ED ---
Back Pain HPI - General Chief Complaint: Back Pain/Injury Stated Complaint: Hip Pain/Back Pain Time Seen by Provider: 04/24/24 05:40 Source: patient Limitations: no limitations - History of Present Illness Initial Comments: 64-year-old female presents emergency department reporting right hip and back pain. States the pain has been going on for the past couple of days. She does have history of right hip replacement and feels as if the replacement is sliding in and out of the joint. She also reports to a throbbing sensation of the lower back. Denies any injuries. No bowel or bladder incontinence. No saddle anesthesia. No other alleviating, precipitating modifying factors - Related Data Home Medications Medication Instructions Recorded Confirmed Atorvastatin Calcium 20 mg PO DAILY 07/16/22 08/05/22 Diclofenac (Unknown Dose) 1 tab PO BID 07/16/22 08/05/22 Previous Rx's Medication Instructions Recorded Cyclobenzaprine [Flexeril] 10 mg PO TID PRN #20 tab 04/24/24 HYDROcodone/APAP 10-325MG [[place] 1 tab PO Q4HR PRN #18 tab 04/24/24 10-325] Lidocaine 5% Patch [Lidoderm] 1 patch TOPICAL DAILY #30 patch 04/24/24 predniSONE [Deltasone] 20 mg PO BID #10 tab 04/24/24 Allergies Allergy/AdvReac Type Severity Reaction Status Date / Time codeine Allergy Itching Verified 04/24/24 05:35 Review of Systems ROS Statement: Those systems with pertinent positive or pertinent negative responses have been documented in the HPI. ROS Other: All systems not noted in ROS Statement are negative. Past Medical History Past Medical History: GERD/Reflux, Osteoarthritis (OA) Additional Past Medical History / Comment(s): arthritis History of Any Multi-Drug Resistant Organisms: None Reported Past Surgical History: Appendectomy, Hysterectomy Additional Past Surgical History / Comment(s): COLONOSCOPY. Past Anesthesia/Blood Transfusion Reactions: No Reported Reaction Past Psychological History: No Psychological Hx Reported Smoking Status: Former smoker Past Alcohol Use History: None Reported Past Drug Use History: None Reported - Past Family History Mother Family Medical History: Cancer Father Family Medical History: Cancer General Exam Limitations: no limitations General appearance: alert, in no apparent distress Head exam: Present: atraumatic, normocephalic, normal inspection Eye exam: Present: normal appearance, PERRL, EOMI. Absent: scleral icterus, conjunctival injection, periorbital swelling ENT exam: Present: normal exam, mucous membranes moist Neck exam: Present: normal inspection. Absent: tenderness, meningismus, lymphadenopathy Respiratory exam: Present: normal lung sounds bilaterally. Absent: respiratory distress, wheezes, rales, rhonchi, stridor Cardiovascular Exam: Present: regular rate, normal rhythm, normal heart sounds. Absent: systolic murmur, diastolic murmur, rubs, gallop, clicks GI/Abdominal exam: Present: soft, normal bowel sounds. Absent: distended, tenderness, guarding, rebound, rigid Extremities exam: Present: full ROM, tenderness (To palpation of the right hip and SI joint), normal capillary refill. Absent: pedal edema, joint swelling, calf tenderness Back exam: Present: normal inspection Neurological exam: Present: alert, oriented X3, CN II-XII intact Psychiatric exam: Present: normal affect, normal mood Skin exam: Present: warm, dry, intact, normal color. Absent: rash Course Vital Signs 04/24/24 04/24/24 05:34 07:20 Temperature 98.1 F 98 F Pulse Rate 71 62 Respiratory 18 18 Rate Blood Pressure 156/84 117/70 O2 Sat by Pulse 95 96 Oximetry Medical Decision Making - Medical Decision Making Was pt. sent in by a medical professional or institution ([facility] Coleman, SPECIAL SYSTEMS TECHNICIAN, urgent care, hospital, or [facility]...) When possible be specific @ -No Did you speak to anyone other than the patient for history (EMS, parent, family, police, friend...)? What history was obtained from this source @ -No Did you review nursing and triage notes (agree or disagree)? Why? @ -I reviewed and agree with nursing and triage notes Were old charts reviewed (outside hosp., previous admission, EMS record, old EKG, old radiological studies, urgent care reports/EKG's, [facility] records)? Report findings @ -No old charts were reviewed Differential Diagnosis (chest pain, altered mental status, abdominal pain women, abdominal pain men, vaginal bleeding, weakness, fever, dyspnea, syncope, headache, dizziness, GI bleed, back pain, seizure, CVA, palpatations, mental health, musculoskeletal)? @ -Differential Back Pain: Strain, zoster, cauda equina syndrome, epidural abscess, vertebral osteomyelitis, discitis, fracture, subluxation, disc herniation, DJD, spinal stenosis, dissection, AAA, pancreatitis, peptic ulcer disease, pyelonephritis, kidney stone, this is not meant to be an all-inclusive list. EKG interpreted by me (3pts min.). @ - Not done X-rays interpreted by me (1pt min.). @ -yes and demonstrates advanced disc disease CT interpreted by me (1pt min.). @ -None done U/S interpreted by me (1pt. min.). @ -None done What testing was considered but not performed or refused? (CT, X-rays, U/S, labs)? Why? @ -None What meds were considered but not given or refused? Why? @ -None Did you discuss the management of the patient with other professionals (professionals i.e. , PA, SPECIAL SYSTEMS TECHNICIAN, lab, RT, psych nurse, social services, windsurfing instructor, teacher, [employer] revenue officer, nurse case management)? Give summary @ -No Was smoking cessation discussed for >3mins.? @ -No Was critical care preformed (if so, how long)? @ -No Were there social determinants of health that impacted care today? How? (Homelessness, low income, unemployed, alcoholism, drug addiction, transportation, low edu. Level, literacy, decrease access to med. care, [facility], rehab)? @ -No Was there de-escalation of care discussed even if they declined (Discuss DNR or withdrawal of care, Hospice)? DNR status @ -No What co-morbidities impacted this encounter? (DM, HTN, Smoking, COPD, CAD, Cancer, CVA, ARF, Chemo, Hep., AIDS, mental health diagnosis, sleep apnea, morbid obesity)? @ -None Was patient admitted / discharged? Hospital course, mention meds given and route, prescriptions, significant lab abnormalities, going to OR and other pertinent info. @ -Upon arrival patient seen and evaluated. Thorough history and physical exam was performed. X-rays are completed to evaluate for the patient's hip prosthesis. X-ray is negative. Results are discussed with the patient. She will be treated with muscle relaxers, Lidoderm patches and pain medications. Patient will follow-up with her primary care doctor may need referral to orthopedic spine. She is to return for any new or worsening symptoms. Patient agreeable and was discharged in stable condition Undiagnosed new problem with uncertain prognosis? @ -No Drug Therapy requiring intensive monitoring for toxicity (Heparin, Nitro, Insulin, Cardizem)? @ -No Were any procedures done? @ -No Diagnosis/symptom? @ -Acute exacerbation of low back pain Acute, or Chronic, or Acute on Chronic? @ -Acute Uncomplicated (without systemic symptoms) or Complicated (systemic symptoms)? @ -Uncomplicated Side effects of treatment? @ -No Exacerbation, Progression, or Severe Exacerbation? @ -No Poses a threat to life or bodily function? How? (Chest pain, [place], [place], pneumonia, PE, COPD, DKA, ARF, appy, cholecystitis, CVA, Diverticulitis, Homicidal, Suicidal, threat to staff... and all critical care pts) @ -No Disposition Clinical Impression: Sciatica, Lumbar radiculopathy, acute Disposition: HOME SELF-CARE Condition: Stable Instructions (If sedation given, give patient instructions): Acute Low Back Pain (ED), Lumbar Radiculopathy (ED) Additional Instructions: Please space out the dose of the [place] and muscle relaxer by at least 2 hours. Stop taking your Celebrex. Follow-up with Dr. Xiao and for further management of your symptoms and return for any new or worsening symptoms Prescriptions: predniSONE [Deltasone] 20 mg PO BID #10 tab Cyclobenzaprine [Flexeril] 10 mg PO TID PRN #20 tab PRN Reason: Muscle Spasm Lidocaine 5% Patch [Lidoderm] 1 patch TOPICAL DAILY #30 patch HYDROcodone/APAP 10-325MG [[place] 10-325] 1 tab PO Q4HR PRN #18 tab PRN Reason: pain Is patient prescribed a controlled substance at d/c from ED?: Yes When asked, does pt state using other controlled substances?: No If prescribed controlled substance>3 days was MAPS reviewed?: Prescribed <3 Days Referrals: Markel Reyes MD [Primary Care Provider] - 1-2 days Jaylen Xiao DO [Doctor of Osteopathic Medicine] - 1-2 days Time of Disposition: 07:29
[2024-04-24] MEDS: HYDROmorphone 1 MG/ML 1 ML SYRINGE IM STA ×2 (06:58→07:33)
[2024-04-24] MEDS: predniSONE 20 MG TAB PO STA (07:32)
[2024-04-24] MEDS: LIDOCAINE 4% PATCH TOPICAL ONE (07:32)
[2024-04-24 07:38] VITALS: BP 117/70; PULSE 62; TEMP 98
--- NOTE | 2024-04-24 07:54 | XR ---
EXAMINATION TYPE: XR pelvis AP view DATE OF EXAM: 04/24/2024 COMPARISON: 04/02/2021 hip HISTORY: Pain TECHNIQUE: AP pelvis FINDINGS: Bilateral hip prostheses are present. No acute fractures or dislocations evident. Symphysis pubis and sacroiliac joints. Normal bowel gas is present. IMPRESSION: 1. No acute osseous abnormality AP Pelvis.
--- NOTE | 2024-04-24 07:56 | XR ---
EXAMINATION TYPE: XR lumbosacral spine min 4V DATE OF EXAM: 04/24/2024 COMPARISON: 01/02/2022 HISTORY: Low back pain TECHNIQUE: 5 view lumbar spine FINDINGS: Scoliosis is present with convexity to the left centered at L3. Degenerative disc changes a re present notably C3-4 845. Pedicles are intact. No spondylolytic defects are evident. Vertebral bod y heights are preserved. There is some progression of the L1-2 disc space narrowing. Changes otherwise appear essentially stab le. IMPRESSION: 1. Moderately advanced degenerative disc change throughout the lumbar spine. 2. Scoliosis.
== END 2024-04-24 07:58 | disposition home or self-care (01) ==
LOC: EC 05:28
DX: M54.31 Sciatica, right side (principal); M54.16 Radiculopathy, lumbar region; Z87.891 Personal history of nicotine dependence; Z88.5 Allergy status to narcotic agent
CPT/HCPCS: 72110; 72170; 99283; 96372 ×4; J2360; J1170; J1885; J7512

== ENCOUNTER → 2024-09-15 | Outpatient (CLI) | payer BC ==
--- NOTE | 2024-09-16 18:40 | MM ---
Reason for Exam: Screening (asymptomatic). Last mammogram was performed 1 year(s) and 2 month(s) ago. Patient History: Menarche at age 17. First Full-Term at age 25. Left ovary removed at age 42. Right ovary removed at age 42. Hysterectomy at age 42. Postmenopausal. Patient has history of breast feeding. Estrogen for 6 months until age 43. Maternal aunt had breast cancer. Mother had breast cancer, age 40. Risk Values: Lynn 5 year model risk: 2.7%. NCI Lifetime model risk: 11.8%. Prior Study Comparison: 07/03/2021 Bilateral Screening Mammogram, [facility]. 08/01/2022 Bilateral MG 3D screening mammo w/cad, [facility]. 08/04/2023 Bilateral MG 3D screening mammo w/cad, [facility]. Tissue Density: There are scattered areas of fibroglandular density. Findings: Analyzed By CAD. There is no suspicious group of microcalcifications or new suspicious mass in either breast. Overall Assessment: Negative, BI-RAD 1 Management: Screening Mammogram of both breasts in 1 year. . Patient should continue monthly self-breast exams. A clinical breast exam by your physician is recommended on an annual basis. This exam should not preclude additional follow-up of suspicious palpable abnormalities. Note on Lynn scores and lifetime risk: 1. A Lynn score greater than 3% is considered moderate risk. If this is the case, consider specialist referral to assess eligibility for a risk reducing agent. 2. If overall lifetime risk for the development of breast cancer is 20% or higher, the patient may qualify for future screening with alternating mammogram and breast MRI. [facility], , 09/16/2024 6:37 PM. Electronically signed and approved by: Kassy Rich M.D. Radiologist
== END | disposition home or self-care (01) ==
LOC: RADMAMWWP 07:29
PROVIDERS: ATTEND Family Medicine
DX: Z12.31 Encounter for screening mammogram for malignant neoplasm of breast (principal); R92.323 Mammographic fibroglandular density, bilateral breasts; Z78.0 Asymptomatic menopausal state; Z80.3 Family history of malignant neoplasm of breast; Z90.722 Acquired absence of ovaries, bilateral
CPT/HCPCS: 77063; 77067